=== PATIENT | male | born 1940 | race Caucasian/White ===

== ENCOUNTER 2016-03-05 19:26 | Emergency (ER) | payer MEDICARE, OTHER ==
[2016-03-06] MEDS ORDERED: METHYLPRED SOD SUCC 125 MG/2 ML VIAL ONE (00:58)
[2016-03-06] MEDS ORDERED: LEVOFLOXACIN 750 MG TAB PO ONE (01:01)
[2016-03-06] MEDS ORDERED: DUONEB INH ONE ×2 (01:04)
== END 2016-03-06 03:04 | disposition home or self-care (01) ==
LOC: ER 19:26
CPT/HCPCS: 71020 ×2; 94640 ×2; 96374 ×2; 99285; J2930